=== PATIENT | male | born 1965 | race Caucasian/White ===

== ENCOUNTER 2024-03-09 11:25 | Day surgery (SDC) | payer BC, SELFPAY ==
[2024-03-09] VITALS (11 sets, daily range): BP systolic 114–142; BP diastolic 60–92; PULSE 64–91; RESP 12–20; TEMP 36.8–37.1; O2SAT 92–95; BMI 29.2
[2024-03-09] MEDS: DiphenhydrAMINE INJ 50 MG/ML VIAL 25 MG IV (13:11)
[2024-03-09] MEDS: fentaNYL CIT INJ 50 mCg/ML AMP 2ML (ASD USE ONLY) IV (13:13)
[2024-03-09] MEDS: MEPERIDINE INJ 25 MG/ML VIAL (ASD USE ONLY) IV (13:19)
[2024-03-09] MEDS: MIDAZOLAM INJ 1 MG/ML VIAL 2 ML (ASD USE ONLY) 2 MG IV (13:22)
[2024-03-09] MEDS: ONDANSETRON INJ 2 MG/ML INJ 2 ML 4 MG IV (13:25)
== END 2024-03-09 14:30 | disposition home or self-care (01) ==
PROVIDERS: PCP Student in an Organized Health Care Education/Training Program; Referring Provider Specialist; Visit Provider Specialist
PROC: 0DBE8ZX Excision of Large Intestine, Via Natural or Artificial Opening Endoscopic, Diagnostic (ICD-10-PCS; CPT 45380; principal; 2024-03-09 10:45)
DX: D12.4 Benign neoplasm of descending colon (principal); D12.5 Benign neoplasm of sigmoid colon; D12.8 Benign neoplasm of rectum; Z80.0 Family history of malignant neoplasm of digestive organs; K64.9 Unspecified hemorrhoids; K57.30 Diverticulosis of large intestine without perforation or abscess without bleeding
CPT/HCPCS: 45385; A4649; J1200; J2175; J2250; J2405; J3010

== ENCOUNTER → 2024-03-28 | Outpatient (CLI) | payer BC, SELFPAY ==
--- NOTE | 2024-03-28 15:55 | XR_ITS ---
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
--- NOTE | 2024-03-28 15:55 | XR_ITS ---
Examination: Bilateral hands, 6 views. 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
== END | disposition home or self-care (01) ==
PROVIDERS: PCP Student in an Organized Health Care Education/Training Program; Referring Provider Nurse Practitioner Gerontology; Visit Provider Nurse Practitioner Gerontology
DX: M18.11 Unilateral primary osteoarthritis of first carpometacarpal joint, right hand (principal); M19.041 Primary osteoarthritis, right hand; Z87.81 Personal history of (healed) traumatic fracture
CPT/HCPCS: 73110; 73130

== ENCOUNTER → 2024-10-16 | Outpatient (CLI) | payer OTHER, SELFPAY ==
--- NOTE | 2024-10-16 14:45 | XR_ITS ---
Examination: Abdomen sonogram, Limited Date and time of exam: October 16, 2024 1456 hours INDICATIONS: Abnormal liver function tests on examination one month ago Technique: Real-time seay scale transabdominal sonographic images of the upper abdomen obtained. Findings: Normal gallbladder. Normal common bile duct 0.4 cm Pancreatic head 2.4 cm Liver 17.2 cm, fatty infiltration, right lobe liver lesion 4.5 x 4.9 x 4.9 cm Normal hepatopedal portal venous flow Patent IVC IMPRESSION: Recommend MRI abdomen liver follow-up pre and postcontrast to assess right lobe liver lesion described above
== END | disposition home or self-care (01) ==
PROVIDERS: PCP Family Medicine; Referring Provider Specialist; Visit Provider Specialist
DX: K76.9 Liver disease, unspecified (principal)
CPT/HCPCS: 76705

== ENCOUNTER → 2024-11-30 | Outpatient (CLI) | payer OTHER, SELFPAY ==
[2024-11-30 11:44] LABS: Basophils # (Auto) 0.0 Thou/mm3 (0.0-0.2); Basophils % (Auto) 0 % (0-2.5); Eosinophils # (Auto) 0.2 Thou/mm3 (0.0-0.5); Eosinophils % (Auto) 2 % (0-10); Hematocrit 45.1 % (41.0-53.0); Hemoglobin 15.5 g/dL (13.5-16.0); Immature Granulocytes Auto 0.02 Thou/mm3 (0.00-0.00); Lymphocytes # (Auto) 3.2 Thou/mm3 (1.0-4.8); Lymphocytes % (Auto) 45 % (10-50); Mean Corpuscular HGB Conc 34.4 g/dl (31.0-37.0); Mean Corpuscular Hemoglobin 31.3 pg (25.0-35.0); Mean Corpuscular Volume 91 fL (80-100); Monocytes # (Auto) 0.4 Thou/mm3 (0.0-0.8); Monocytes % (Auto) 6 % (0-12); Neutrophils # (Auto) 3.3 Thou/mm3 (1.8-7.7); Neutrophils % (Auto) 46 % (37-80); Nucleated Red Blood Cell # 0.00 Thou/mm3 (0.00-0.00); Nucleated Red Blood Cell % 0 /100 WBC (0); Platelet Count 211 Thou/mm3 (140-440); RDW Standard Deviation 44.7 fL (35.1-43.9); Red Blood Count 4.95 Miln/mm3 (4.50-5.90); White Blood Count 7.1 Thou/mm3 (3.8-10.6)
[2024-11-30 11:56] LABS: AFP Non-Pregnant 5.50 ng/mL (<8.10)
[2024-11-30 11:57] LABS: Collection Type, Urine Clean Catch; Squamous Epithelial Cell,Urine 0 /hpf (0-5)
[2024-11-30 12:02] LABS: Alanine Aminotransferase 19 U/L (10-49); Albumin, Serum 4.4 gm/dL (3.4-4.8); Albumin/Globulin Ratio 1.8 (1.2-2.2); Alkaline Phosphatase 84 U/L (46-116); Amylase 76 U/L (30-118); Anion Gap 9 (7-16); Aspartate Amino Transferase 18 U/L (0-34); BUN/Creatinine Ratio 7 Ratio (12-20); Bilirubin,Total 0.6 mg/dL (0.3-1.2); Blood Urea Nitrogen 8 mg/dL (9-23); Calcium 9.7 mg/dL (8.3-10.6); Calcium (Corrected) 9.7 mg/dL (8.5-10.1); Carbon Dioxide 28.8 mMol/L (20.0-31.0); Cardiac Risk Estimate 4.5 RATIO (4.0-6.7); Chloride 105 mMol/L (98-107); Cholesterol 225 mg/dL (132-200); Creatinine (Component) 1.1 mg/dL (0.6-1.3); Globulin 2.5 gm/dL (2.3-3.5); Glucose 101 mg/dL (74-106); HDL Cholesterol 50 mg/dL (40-60); LDL Cholesterol,Calculated 151 mg/dL (0-130); Osmolality,Calculated 283 (275-295); Phosphorous 2.9 mg/dL (2.4-5.1); Potassium 4.0 mMol/L (3.4-5.1); Sodium 143 mMol/L (136-145); Total Protein 6.9 gm/dL (5.7-8.2); Triglycerides 119 mg/dL (30-150); eGFR > 60 See Note
[2024-11-30 12:33] LABS: Bilirubin,Urine Negative (Negative); Blood,Urine Negative (Negative); Clarity,Urine Clear (Clear/Hazy); Color,Urine Colorless (Lt Yel-Yel); Glucose, Urine Negative (Negative); Ketones,Urine Negative (Negative); Leukocyte Esterase,Urine Negative (Negative); Nitrite,Urine Negative (Negative); PH,Urine 6.5 (5.0-7.0); Protein,Urine Negative (Neg - Trace); RBC,Urine < 1 /hpf (0-3); Specific Gravity,Urine 1.008 (1.001-1.035); Urobilinogen,Urine Negative mg/dL (0.0-1.0); WBC,Urine < 1 /hpf (0-5)
== END | disposition home or self-care (01) ==
LOC: COPL 10:44
PROVIDERS: PCP Student in an Organized Health Care Education/Training Program; Referring Provider Specialist; Visit Provider Specialist
DX: R10.13 Epigastric pain (principal); R14.0 Abdominal distension (gaseous); E78.9 Disorder of lipoprotein metabolism, unspecified
CPT/HCPCS: 36415; 80053; 80061; 81001; 82105; 82150; 84100; 85025

== ENCOUNTER 2024-12-03 10:00 | Day surgery (SDC) | payer OTHER, SELFPAY ==
[2024-11-30 14:42] VITALS: BMI 29.8
[2024-12-03] VITALS (9 sets, daily range): BP systolic 115–148; BP diastolic 77–88; PULSE 61–85; RESP 12–21; TEMP 36.2–36.3; O2SAT 92–98; BMI 28.8
[2024-12-03] MEDS: SODIUM CHLORIDE 0.9% 500 ML 500 ML 20 ML IV (11:50)
[2024-12-03] MEDS: BENZOCAINE 20% (Hurricaine) SPRAY 1 DOSE TOP (11:50)
[2024-12-03] MEDS: fentaNYL CIT INJ 50 mCg/ML AMP 2ML (ASD USE ONLY) IVP (11:54)
[2024-12-03] MEDS: MIDAZOLAM INJ 1 MG/ML VIAL 2 ML (ASD USE ONLY) 2 MG IVP (11:54)
--- NOTE | 2024-12-03 12:13 | SUR.PHASEII ---
1208 patient is sleepy and arousable, breathing unlabored, s/p EGD under IV sedation, report received from Jenny SOLORIO
--- NOTE | 2024-12-03 12:38 | SUR.PHASEII ---
1238 patient is awake, alert, breathing unlabored, able to tolerated 7up with no nausea, vomiting or difficulty swallowing. meets discharge criteria, discharge instruction given to patient and , patient discharged home in wheelchair with all belongings.
== END 2024-12-03 12:38 | disposition home or self-care (01) ==
PROVIDERS: PCP Student in an Organized Health Care Education/Training Program; Referring Provider Specialist; Visit Provider Specialist
PROC: (CPT 43239; principal; 2024-12-03 10:45)
DX: K22.10 Ulcer of esophagus without bleeding (principal); K29.70 Gastritis, unspecified, without bleeding; K76.0 Fatty (change of) liver, not elsewhere classified
CPT/HCPCS: 43239; A4649; J1200; J2250; J3010; J7999; A9270

== ENCOUNTER 2024-12-06 09:21 | Outpatient (RCR) | payer OTHER, SELFPAY ==
--- NOTE | 2024-12-06 10:00 | XR_ITS ---
Examination: CHIARA, hepatobiliary radioisotope scan Gallbladder ejection fraction study. Date and time of exam: December 06, 2024 11:24 AM INDICATIONS: Vomiting and abdominal discomfort 2 years, 4.9 cm right lobe liver lesion on liver sonogram October 16, 2024 Technique: 6.1 mCi of 99M Hepatolite administered. Serial imaging then obtained from immediate through 60 minutes. 2.0 mcg selective catheter Kinevac administered for gallbladder ejection fraction study. Findings: Radioisotope activity within the liver is reasonably homogenous. Gallbladder, common bile duct small bowel activity noted Impression: Gallbladder activity Gallbladder ejection fraction 89%
== END 2024-12-11 23:59 | disposition home or self-care (01) ==
LOC: SNUC 09:21
PROVIDERS: PCP Student in an Organized Health Care Education/Training Program; Referring Provider Specialist; Visit Provider Specialist
DX: R93.2 Abnormal findings on diagnostic imaging of liver and biliary tract (principal)
CPT/HCPCS: 78227; A9537; J2805

== ENCOUNTER → 2024-12-10 | Outpatient (CLI) | payer OTHER, SELFPAY ==
--- NOTE | 2024-12-10 10:00 | XR_ITS ---
Examination: MRI abdomen with intravenous contrast. MRI abdomen without intravenous contrast. Date and time of exam: December 10, 2024 1055 hours INDICATIONS: Abnormal liver function tests on examination this week, vomiting and abdominal discomfort 5 years, liver sonogram October 16, 2024 4.9 cm right lobe liver lesion Technique: Multiple axial, sagittal and coronal sections of the abdomen obtained. Transverse images, TR 6020, TE 107. T1 weighted transverse images, TR 582, TE 9.5. T2-weighted sagittal images, TR 4000, TE 105. T2-weighted sagittal images, TR 4000, TE 5. Coronal images, TR 4210, TE 107. Axial and coronal images are obtained post 20 cc intravenous injection, gadolinium. Findings: Precontrast images do not demonstrate convincing liver lesion No gallstones Spleen is not enlarged No pancreatic mass No biliary tract dilatation No common hepatic or common bile duct stones Pancreatic duct 3 mm No hydronephrosis No abdominal lymphadenopathy Postcontrast images do not demonstrate convincing liver enhancing lesion IMPRESSION: No focal liver lesion depicted Recommend repeat hepatic sonography in one month with the radiologist in attendance
== END | disposition home or self-care (01) ==
PROVIDERS: PCP Student in an Organized Health Care Education/Training Program; Referring Provider Specialist; Visit Provider Specialist
DX: R94.5 Abnormal results of liver function studies (principal)
CPT/HCPCS: 74183; A9577